=== PATIENT | female | born 1985 | race Caucasian/White ===

== ENCOUNTER 2020-09-03 22:05 | Emergency (ER) | payer BC ==
[~2020-09-03] VITALS: Ht 157.5 cm; Wt 59.0 kg
[2020-09-03 22:05] VITALS: BP 121/75
--- NOTE | 2020-09-03 22:36 | NUR ---
COVID SWAB COLLECTED AND SENT TO LAB
== END 2020-09-03 22:29 | disposition home or self-care (01) ==
LOC: ER 22:05
DX: R05 Cough (principal); J02.9 Acute pharyngitis, unspecified; R09.81 Nasal congestion; Z20.828 Contact with and (suspected) exposure to other viral communicable diseases
CPT/HCPCS: 87426; 87804; 99283; C9803; U0003

== ENCOUNTER 2021-06-27 11:53 | Emergency (ER) | payer BC ==
[~2021-06-27] VITALS: Ht 152.4 cm; Wt 89.4 kg
--- NOTE | 2021-06-27 12:04 | NUR ---
DR LEVINE AT [facility] BEDSIDE
--- NOTE | 2021-06-27 12:05 | NUR ---
THE PATIENT [id number] HOME, CHEST PAIN X 1 HOUR. ASPIRIN 324MG, NITRO X 1 GIVEN SPECIAL PROJECTS COORDINATOR. THE PATIENT RATES PAIN 4/10. THE PATIENT STATES THE PATIENT RADIATES TO LEFT SHOULDER. ATTACHED TO THE MONITOR. WARM BLANKET PROVIDED FOR COMFORT. WILL CONTINUE TO MONITOR THE PATIENT
--- NOTE | 2021-06-27 12:25 | NUR ---
X-RAY TECH AT THE BEDSIDE
[2021-06-27 12:55] LABS: BASOPHILS % (AUTO) 0.4 % (0.0-2.0); EOSINOPHILS % (AUTO) 1.5 % (0.0-6.0); HEMATOCRIT 37 % (33-45); HEMOGLOBIN 12.5 g/dL (11.5-14.8); LYMPHOCYTES # (AUTO) 2.9 K/uL (0.8-4.8); LYMPHOCYTES % (AUTO) 40.9 % (20.0-44.0); MEAN CORPUSCULAR HGB CONC 34 g/dl (31.0-36.0); MEAN CORPUSCULAR VOLUME 92 fL (82-100); MONOCYTES # (AUTO) 0.3 K/uL (0.1-1.30); MONOCYTES % (AUTO) 4.5 % (2.0-12.0); NEUTROPHILS # (AUTO) 3.8 K/uL (1.8-8.9); NEUTROPHILS % (AUTO) 52.7 % (43.0-81.0); PLATELET COUNT (AUTO) 268 K/uL (150-450); RED BLOOD CELL COUNT(AUTO) 4.03 MIL/uL (4.0-5.2); WHITE BLOOD COUNT (AUTO) 7.1 K/uL (4.3-11.0)
[2021-06-27 13:30] LABS: CALCIUM, SERUM 8.8 mg/dL (8.5-10.1); CARBON DIOXIDE 28 mmol/L (21-32); CHLORIDE 104 mmol/L (98-107); CREATININE 0.6 mg/dL (0.6-1.3); GLUCOSE 99 mg/dL (74-106); POTASSIUM 3.5 mmol/L (3.5-5.1); SODIUM SERUM 139 mmol/L (136-145); UREA NITROGEN, BLOOD 7 mg/dL (7-18)
[2021-06-27] MEDS ORDERED: IBUPROFEN 600 MG TABLET PO ONE (14:30)
[2021-06-27] MEDS ORDERED: IBUP-1955 PO (14:41)
[2021-06-27] MEDS ORDERED: IBUPROFEN 600 MG TABLET ONE (14:55)
[2021-06-27 15:45] VITALS: BP 127/85
--- NOTE | 2021-06-27 15:45 | NUR ---
IV removed. Catheter intact and site benign. Pressure and 4x4 applied to site. No bleeding noted.Patient discharged to home in stable condition. Written and verbal after care instructions given. Patient verbalizes understanding of instruction.
== END 2021-06-27 15:46 | disposition home or self-care (01) ==
LOC: ER 11:57
DX: R07.89 Other chest pain (principal); E11.9 Type 2 diabetes mellitus without complications; Z98.890 Other specified postprocedural states
CPT/HCPCS: 36415; 71045-TC; 80048-TC; 84484-TC; 84702-TC; 85025-TC; 85378-TC